=== PATIENT | male | born 1980 | race Caucasian/White ===

== ENCOUNTER 2023-05-11 20:03 | Emergency (ER) | payer BC, SELFPAY ==
[2023-05-11 20:06] VITALS: BP 130/83
[2023-05-11 20:14] VITALS: BMI 35.6
[2023-05-11 20:32] LABS: % Basophils 0.5 % (0-2); % Eosinophils 0.7 % (0-6); % Immature Granulocytes 0.4 % (0-0.5); % Lymphocytes 22.9 % (20.5-51.1); % Monocytes 5.3 % (1.7-9.3); % Neutrophils 70.2 % (42.2-75.2); Absolute Basophils 0.1 10^3/uL (0-0.2); Absolute Eosinophils 0.1 10^3/uL (0-0.7); Absolute Lymphocytes 2.5 10^3/uL (1.2-3.4); Absolute Monocytes 0.6 10^3/uL (0.1-0.6); Absolute Neutrophils 7.6 10^3/uL (1.4-6.5); Hematocrit 45.6 % (39.0-52.0); Hemoglobin 16.3 g/dL (13.0-18.0); Mean Corp Hgb Conc. 35.7 g/dL (33.0-37.0); Mean Corpuscular Hgb 30.2 pg (27.0-31.0); Mean Corpuscular Volume 84.4 fL (80.0-94.0); Mean Platelet Volume 11.9 fL (7.4-10.4); Nucleated Red Blood Cells % 0 % (-); Platelet Count 214 10^3/uL (130-400); Red Cell Dist. Width 13.2 % (11.5-14.5); White Blood Cell Count 10.8 10^3/uL (4.8-10.8)
[2023-05-11 20:47] VITALS: BP 102/74; BP 114/72; BP 124/82; PULSE 102; PULSE 120; PULSE 88
--- NOTE | 2023-05-11 20:47 | EDRN ---
Pt asymptomatic during ortho VS - results to Jose MCGOWAN
[2023-05-11] MEDS: NSS 1000 IV (20:52)
[2023-05-11 20:53] LABS: Blood Urea Nitrogen 13 mg/dl (9-20); Carbon Dioxide 20 mmol/L (22-30); Chloride 99 mmol/L (98-107); Estimated Creatinine Clearance > 125 ml/min; Glucose 73 mg/dl (70-99); Sodium 133 mmol/L (135-145); eGFR > 60.00
[2023-05-11 21:00] VITALS: BP 129/84
[2023-05-11 21:13] LABS: ALT (SGPT) 33 U/L (0-50); AST (SGOT) 41 U/L (17-59); Albumin 4.4 g/dl (3.5-5.0); Alkaline Phosphatase 83 U/L (38-126); Direct Bilirubin 0.6 mg/dl (0.0-0.4); Potassium 3.6 mmol/L (3.5-5.1); Total Bilirubin 0.9 mg/dl (0.2-1.3); Total Protein 6.7 g/dl (6.3-8.2)
--- NOTE | 2023-05-11 21:39 | ED.GENMED ---
History of Present Illness
General
Chief Complaint: Fainting/Passed Out
Source: patient
Exam Limitations: none
Time Seen by Provider: 05/11/23 20:22
Nursing documentation reviewed up to this point in time: agreed with
Travel History
Have you had any contact with someone who has COVID-19?: No
Do you have any symptoms of coronavirus? Fever > 100 degrees, chills, cough, shortness of breath, sore throat, loss of taste or smell, muscle aches, or headache?: No
History of Present Illness
History of Present Illness:
42-year-old male without significant past medical history presenting to the emergency department after syncopal episode while out to dinner today. He claims that he is on a 5-day water fast over the past 5 days and today. He was eating dinner and
felt nauseous to the bathroom felt lightheaded and fell to the ground which was witnessed by his they deny any specific injuries no neck pain no head pain. No associated chest pain shortness of breath or palpitations. After he woke up he
still try to walk again and passed out once EMS arrived and felt lightheaded once again did not fully pass out. He is that he feels fully better at this point was given sugar water denies any pain at any point no symptoms currently
Review of Systems
Review of Systems
Allergies reviewed?: Yes
All Other Systems: ROS reviewed and negative except as documented in HPI and ROS
Phy Exam
Physical Exam
Physical Exam:
GENERAL: Alert , in no apparent distress
EYE: pupils equal and reactive
NECK: Supple, no significant adenopathy.
ENT: o/p clr, mmm.
CARDIAC: Regular rate and rhythm .
LUNGS: Clear breath sounds bilaterally, no acute respiratory distress, no wheezes/rales/rhonchi
ABDOMEN: Soft, without focal tenderness, no r/g, no cvat
NEUROLOGICAL: Alert and oriented, no focal neuro deficits
SKIN: Warm and dry, skin intact.
MUSCULOSKELETAL: No edema, well perfused.
PSYCH: Normal and appropriate interaction.
Course
Orders/Labs/Results
Orders:
Orders
05/11/23 20:06
EKG [Electrocardiogram (*1)] Urgent
Reason for Study: Syncope
EKG- Treatment ONCE
05/11/23 20:24
Basic Metabolic Panel Urgent
Complete Blood Count/With Diff Urgent
05/11/23 20:48
0.9% Sodium Chloride 1000 ml [Nss] 1,000 ml IV BOLUS
05/11/23 20:55
Hep Liver [[id number]] Urgent
Potassium Urgent
05/11/23 21:00
Dextrose 5%/0.9%Sodchl 1000 ml [D5/0.9% Sodium Chloride] 1,000 ml IV 1,000 mls/hr
Abnormal Lab Results
05/11/23 05/11/23
20:24 20:55
MPV 11.9 H fL
(7.4-10.4)
Absolute Neuts (auto) 7.6 H 10^3/uL
(1.4-6.5)
Sodium 133 L mmol/L
(135-145)
Carbon Dioxide 20 L mmol/L
(22-30)
Direct Bilirubin 0.6 H mg/dl
(0.0-0.4)
05/11/23 20:24
05/11/23 21:00
Vital Signs
Initial and Last Documented VS:
Initial Vital Signs
Temp Pulse Resp BP Pulse Ox
98.2 F 101 17 130/83 99
05/11/23 20:06 05/11/23 20:06 05/11/23 20:06 05/11/23 20:06 05/11/23 20:06
Last Documented Vital Signs
Temp Pulse Resp BP Pulse Ox
98.2 F 91 17 129/84 99
05/11/23 20:06 05/11/23 21:00 05/11/23 21:00 05/11/23 21:00 05/11/23 20:06
MDM/Problems Addressed
MDM/Problems Addressed:
42-year-old male presenting to the emergency department after multiple syncopal episodes earlier today. Now asymptomatic. This was after a 5-day water fast. Here labs showing slight low sodium of 133 and slightly carbon dioxide level otherwise
labs unremarkable. Vital signs normal patient well-appearing here was given a liter of fluid able to ambulate well no chest pain shortness of breath or palpitations associated. The consistent with any cardiogenic syncope. Likely orthostatic.
Outpatient follow-up close with the primary care doctor. Return precautions given.
*Critical Care Note
Total Time (30-74mins, 75-104mins- exclusive of procedures): Not Applicable
ED Attending Note
-
Portions of this chart may have been created with voice recognition software.� Occasional wrong word or��sound alike� substitutions may have occurred due to the inherent limitations of voice recognition software.
Discharge Plan
Departure
Patient Disposition: Home (Routine Discharge)
Date of Disposition: 05/11/23
Time of Disposition: :44
Patient with high blood pressure during this ER visit?: No
Condition: Good
Covid-19: Not Applicable
Discharge Problem:
Syncope
Instructions: Syncope (Fainting) (DC)
Prescriptions:
No Action
No Current Medications
0
Activity Restrictions/Additional Instructions:
You came to emergency department today after syncopal episode.. Here you had a reassuring evaluation. Please follow-up closely with a primary care doctor. Return to the emergency department for any worsening, new or concerning symptoms.
Interventions
Interventions:
*Risk Screen - Suicide Last Done: 05/11/23 20:14
*General Assessment Last Done: 05/11/23 20:14
*Neglect/Abuse Screening Last Done: 05/11/23 20:14
ED- Fall Risk Assessment Last Done: 05/11/23 20:27
*ED COVID-19 Vaccine History Last Done: 05/11/23 20:06
ED- Cardiac Assessment Last Done: 05/11/23 20:27
ED- Neurological Assessment Last Done: 05/11/23 20:27
--- NOTE | 2023-05-11 21:41 | EDRN ---
Pt ambulated to bathroom, says he feels 'fine' no complaints offered.
== END 2023-05-11 21:55 | disposition home or self-care (01) ==
LOC: EMR 20:03
PROVIDERS: Emergency Medicine; Physician Assistant; EMERGENCY PHYSICIAN Student in an Organized Health Care Education/Training Program
DX: R55 Syncope and collapse (principal)
CPT/HCPCS: 99284; 96360; 80048; 80076; 84132; 85025; 93005